=== PATIENT | female | born 1940 | race Caucasian/White ===

== ENCOUNTER → 2016-10-31 | Outpatient (CLI) | payer OTHER ==
[~2016-10-31] MED LIST: NA BICARBONATE 50 MEQ/50 ML VIAL ONE
--- NOTE | 2016-10-31 16:47 | US ---
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 Consent: The procedure, risks, and benefits were discussed with the patient. We discussed the plan to attempt to answer the question with fine-needle aspiration only, and if the final aspiration was i nconclusive, proceed with ultrasound-guided core biopsy. The patient agreed. Risks and benefits wer e discussed. Consent was signed. PQRS Cross-Cutting Measure #226: Current tobacco use: No. Findings: The 3 cm in length x 1.5 x 1.3 cm nodule in the low left internal jugular vein was identif ied. The medial to lateral approach was selected. The skin was marked, cleansed with chlorhexidine, and sterilely draped. Skin and deep soft tissues were anesthetized with 1% lidocaine. Utilizing st andard capillary technique, the nodule was aspirated utilizing seven separate 25-gauge needles. The specimens were reviewed with Dr. Alcantar, the available pathologist. Dr. Alcantar thought the major ity of the fine-needle aspirates were inconclusive with limited cellular material. I returned to the patient's bedside and proceeded with ultrasound-guided core biopsy. Additional 1% lidocaine was tran michelle in the skin and deep to the skin near the nodule. Through the numbed up skin tract, a 19-gauge c oaxial [place] needle was advanced down to the anteromedial aspect of the nodule. Through the coaxial needle, three 20-gauge core samples were obtained utilizing the variable throw system. Samples were submitted in formalin. The patient tolerated the procedure well. No hematoma or other immediate com plication developed. Impression: Successful ultrasound-guided core biopsy of nodule in left internal jugular vein and fin e-needle aspiration. Plan: Cytology and histology are pending.
== END ==
LOC: FIMAGING 12:10
PROVIDERS: ATTEND Surgery
PROC: 05B Upper Veins, Excision (ICD-10-PCS; principal; 2016-10-31)
PROC: 0KB Muscles, Excision (ICD-10-PCS; principal; 2016-10-31)
DX: C73 Malignant neoplasm of thyroid gland (principal)

== ENCOUNTER → 2017-03-06 | Outpatient (CLI) | payer OTHER | LOC: FIMAGING 10:58 | PROVIDERS: ATTEND Internal Medicine Endocrinology, Diabetes & Metabolism | DX: C73 Malignant neoplasm of thyroid gland (principal) | CPT/HCPCS: 78018; 79005; A9517 ==

== ENCOUNTER → 2017-08-11 | Outpatient (CLI) | payer OTHER | LOC: BRMIMAGING 09:25 | PROVIDERS: ATTEND Internal Medicine Endocrinology, Diabetes & Metabolism | DX: Z12.39 Encounter for other screening for malignant neoplasm of breast (principal); M85.89 Other specified disorders of bone density and structure, multiple sites; C73 Malignant neoplasm of thyroid gland ==

== ENCOUNTER → 2017-08-12 | Outpatient (CLI) | payer OTHER ==
[~2017-08-12] MED LIST changes: +IOPAMIDOL (ISOVUE-300) 100 ML BTL ONE; -NA BICARBONATE 50 MEQ/50 ML VIAL ONE
== END ==
LOC: CIMAGING 09:46
PROVIDERS: ATTEND Internal Medicine Endocrinology, Diabetes & Metabolism
DX: R91.8 Other nonspecific abnormal finding of lung field (principal); C73 Malignant neoplasm of thyroid gland
CPT/HCPCS: 70491; 71260; Q9967

== ENCOUNTER → 2018-01-14 | Outpatient (CLI) | payer OTHER | LOC: FIMAGING 12:40 | PROVIDERS: ATTEND Internal Medicine Endocrinology, Diabetes & Metabolism | DX: C73 Malignant neoplasm of thyroid gland (principal) | CPT/HCPCS: 78018; 79005; A9517 ==